=== PATIENT | male | born 1975 | race Caucasian/White ===

== ENCOUNTER 2021-09-19 10:10 | Inpatient (IN) ==
[2021-09-19 11:06] LABS: Basophils # 0.1 10*3/uL (0.0-0.2); Basophils % 0.8 % (0.0-0.8); Eosinophils # 0.3 10*3/uL (0.0-0.87); Hematocrit 44.8 VOL% (42.0-52.0); Hemoglobin 14.2 GM/DL (14.0-18.0); Immature Granulocytes % 1.1 %; Immature Granulocytes Absolute 0.09 #; Lymphocytes # 1.6 10*3/uL (1.4-4.0); Lymphocytes % 19.4 % (21.2-54.2); Mean Corpuscular HGB Conc 31.7 GM/DL (32-36); Monocytes % 8.8 % (1.7-12.7); Neutrophils % 65.9 % (38.7-73.9); Platelet Count 317 T/CUMM (130-400); Red Blood Count 5.09 MC/CUMM (3.8-5.5); Red Cell Distribution Width 12.2 % (9.3-17.3); White Blood Count 8.3 T/CUMM (4-12)
[2021-09-19 11:18] LABS: Calcium 9.4 MG/DL (8.5-10.1); Osmolality,Calculated 274.2 MOS/KG (273-304); Potassium 4.9 MMOL/L (3.5-5.1)
[2021-09-19 12:15] LABS: Sedimentation Rate-Westergren 43 MM/HR (0-15)
[2021-09-19] MEDS ORDERED: GLUCAGON 1 MG VIAL IM PRN (13:30)
[2021-09-19] MEDS ORDERED: DOCUSATE SODIUM 100 MG CAPSULE PO PRN (13:30)
[2021-09-19] MEDS ORDERED: ONDANSETRON 4 MG/2 ML VIAL IV PRN (13:30)
[2021-09-19] MEDS ORDERED: DEXTROSE 10% 250 ML BAG IV PRN (13:30)
[2021-09-19] MEDS ORDERED: hydrALAZINE 20 MG/1 ML VIAL IV PRN (13:30)
[2021-09-19] MEDS ORDERED: ACETAMINOPHEN 325 MG TABLET PO PRN (13:30)
[2021-09-19] MEDS: MEROPENEM 500 MG in SODIUM CHLORIDE 0.9% 100 ML IV SCH ×2 (13:59→20:25)
[2021-09-19] MEDS: VANCOMYCIN INJ 1,500 MG in SODIUM CHLORIDE 0.9% 500 ML IV SCH (14:50)
[2021-09-19] MEDS: INSULIN LISPRO 100 UNIT/ML SUBCUT SCH ×2 (16:52→20:32)
[2021-09-19] MEDS ORDERED: INFLUENZA VIRUS VACCINE 0.5 ML SYRINGE IM ONE (17:04)
[2021-09-19] MEDS: GABAPENTIN 300 MG CAPSULE PO SCH (20:57)
[2021-09-19] MEDS: DULoxetine 30 MG CAPSULE PO SCH (20:57)
[2021-09-20] MEDS: MEROPENEM 500 MG in SODIUM CHLORIDE 0.9% 100 ML IV SCH ×4 (02:11→20:50)
[2021-09-20] MEDS: VANCOMYCIN INJ 1,500 MG in SODIUM CHLORIDE 0.9% 500 ML IV SCH ×2 (02:57→15:14)
[2021-09-20 06:28] LABS: Basophils % 0.6 % (0.0-0.8); Eosinophils # 0.3 10*3/uL (0.0-0.87); Eosinophils % 4.5 % (0.00-10.9); Hemoglobin 14.5 GM/DL (14.0-18.0); Immature Granulocytes % 1.2 %; Immature Granulocytes Absolute 0.08 #; Lymphocytes # 1.7 10*3/uL (1.4-4.0); Lymphocytes % 25.4 % (21.2-54.2); Mean Corpuscular HGB Conc 32.2 GM/DL (32-36); Mean Corpuscular Volume 87.7 FL (87-102); Monocytes % 7.4 % (1.7-12.7); Neutrophils % 60.9 % (38.7-73.9); Platelet Count 312 T/CUMM (130-400); Red Blood Count 5.13 MC/CUMM (3.8-5.5); Red Cell Distribution Width 12.3 % (9.3-17.3); White Blood Count 6.7 T/CUMM (4-12)
[2021-09-20 06:46] LABS: Calcium 8.9 MG/DL (8.5-10.1); Osmolality,Calculated 277.2 MOS/KG (273-304); Potassium 4.6 MMOL/L (3.5-5.1)
[2021-09-20] MEDS: INSULIN LISPRO 100 UNIT/ML SUBCUT SCH ×6 (08:49→20:53)
[2021-09-20] MEDS ORDERED: ENOXAPARIN 40 MG/0.4 ML SYRINGE SUBCUT SCH (09:00)
[2021-09-20] MEDS: DULoxetine 30 MG CAPSULE PO SCH ×2 (09:50→20:51)
[2021-09-20] MEDS: GABAPENTIN 300 MG CAPSULE PO SCH ×3 (09:50→20:51)
[2021-09-20] MEDS: PANTOPRAZOLE 40 MG TABLET PO SCH (09:50)
[2021-09-20] MEDS ORDERED: LACTATED RINGERS 1,000 ML IV SCH (12:30)
[2021-09-20] MEDS ORDERED: fentaNYL 100 MCG/2 ML VIAL ONE (12:38)
[2021-09-20] MEDS ORDERED: propofoL 200 MG/20 ML VIAL IV ONE (12:56)
[2021-09-20] MEDS ORDERED: DEXMEDETOMIDINE 200 MCG/2 ML VIAL ONE (12:56)
[2021-09-20] MEDS ORDERED: HYDROmorphone 1 MG/1 ML SYRINGE ONE (13:20)
[2021-09-20] MEDS ORDERED: HYDROmorphone 1 MG/1 ML SYRINGE IV PRN ×2 (13:31→19:26)
[2021-09-20] MEDS ORDERED: hydrOXYzine HCL 25 MG TABLET PO SCH (15:00)
[2021-09-20] MEDS: lisinopriL 10 MG TABLET PO SCH (20:51)
[2021-09-20] MEDS: METOPROLOL SUCCINATE XL 25 MG TABLET PO SCH (20:51)
[2021-09-20] MEDS: SIMVASTATIN 10 MG TABLET PO SCH (20:51)
[2021-09-20] MEDS: hydrOXYzine HCL 25 MG TABLET PO SCH (20:52)
[2021-09-20] MEDS: INSULIN GLARGINE 100 UNIT/ML SUBCUT SCH (20:53)
[2021-09-20] MEDS ORDERED: DULoxetine 30 MG CAPSULE PO SCH (21:00)
[2021-09-20] MEDS ORDERED: GABAPENTIN 300 MG CAPSULE PO SCH (21:00)
[2021-09-20] MEDS ORDERED: diphenhydrAMINE CAP 25 MG CAPSULE PO ONE (21:59)
[2021-09-21] MEDS: MEROPENEM 500 MG in SODIUM CHLORIDE 0.9% 100 ML IV SCH ×2 (01:17→09:59)
[2021-09-21] MEDS: VANCOMYCIN INJ 1,500 MG in SODIUM CHLORIDE 0.9% 500 ML IV SCH ×2 (02:10→17:41)
[2021-09-21 03:57] LABS: Basophils # 0.1 10*3/uL (0.0-0.2); Basophils % 1.4 % (0.0-0.8); Eosinophils # 0.3 10*3/uL (0.0-0.87); Eosinophils % 5.3 % (0.00-10.9); Hematocrit 41.8 VOL% (42.0-52.0); Hemoglobin 13.2 GM/DL (14.0-18.0); Immature Granulocytes % 1.4 %; Immature Granulocytes Absolute 0.08 #; Lymphocytes # 1.7 10*3/uL (1.4-4.0); Lymphocytes % 29.9 % (21.2-54.2); Mean Corpuscular HGB Conc 31.6 GM/DL (32-36); Mean Corpuscular Volume 88.6 FL (87-102); Mean Platelet Volume 8.6 FL (9.6-12.0); Monocytes % 11.1 % (1.7-12.7); Neutrophils % 50.9 % (38.7-73.9); Platelet Count 235 T/CUMM (130-400); Red Blood Count 4.72 MC/CUMM (3.8-5.5); White Blood Count 5.7 T/CUMM (4-12)
[2021-09-21 04:12] LABS: Calcium 8.7 MG/DL (8.5-10.1); Osmolality,Calculated 284.5 MOS/KG (273-304); Potassium 4.1 MMOL/L (3.5-5.1)
[2021-09-21] MEDS: INSULIN LISPRO 100 UNIT/ML SUBCUT SCH ×7 (08:41→21:13)
[2021-09-21] MEDS: DULoxetine 30 MG CAPSULE PO SCH ×2 (08:42→21:15)
[2021-09-21] MEDS: GABAPENTIN 300 MG CAPSULE PO SCH ×3 (08:42→21:14)
[2021-09-21] MEDS: PANTOPRAZOLE 40 MG TABLET PO SCH (08:42)
[2021-09-21] MEDS: cefTRIAXone 2,000 MG in SODIUM CHLORIDE 0.9% 100 ML IV SCH (09:03)
[2021-09-21] MEDS ORDERED: SODIUM HYPOCHLORITE 0.25% IRRIG 473 ML BOTTLE TOP SCH (12:30)
[2021-09-21] MEDS: lisinopriL 10 MG TABLET PO SCH (21:14)
[2021-09-21] MEDS: INSULIN GLARGINE 100 UNIT/ML SUBCUT SCH (21:14)
[2021-09-21] MEDS: SIMVASTATIN 10 MG TABLET PO SCH (21:14)
[2021-09-21] MEDS: hydrOXYzine HCL 25 MG TABLET PO SCH (21:15)
[2021-09-21] MEDS: METOPROLOL SUCCINATE XL 25 MG TABLET PO SCH (21:15)
[2021-09-22] MEDS: VANCOMYCIN INJ 1,500 MG in SODIUM CHLORIDE 0.9% 500 ML IV SCH (02:03)
[2021-09-22] MEDS: cefTRIAXone 2,000 MG in SODIUM CHLORIDE 0.9% 100 ML IV SCH (08:37)
[2021-09-22] MEDS: INSULIN LISPRO 100 UNIT/ML SUBCUT SCH ×3 (08:38→08:52)
[2021-09-22] MEDS: GABAPENTIN 300 MG CAPSULE PO SCH (08:39)
[2021-09-22] MEDS: DULoxetine 30 MG CAPSULE PO SCH (08:39)
[2021-09-22] MEDS: PANTOPRAZOLE 40 MG TABLET PO SCH (08:39)
[2021-09-22 13:53] VITALS: BP 128/75
[2021-09-25] MEDS ORDERED: ERGOCALCIFEROL 50,000 UNIT CAPSULE PO SCH (09:00)
== END 2021-09-22 14:52 | disposition home health service (06) | DRG 982 ==
LOC: N.ED 10:10 → N.3E 13:30 → SUATTDRO 13:30 → N.3E 15:49
PROVIDERS: ADMIT Internal Medicine; ATTEND Internal Medicine